=== PATIENT | female | born 1995 | race Caucasian/White ===

== ENCOUNTER 2017-10-25 07:58 | Emergency (ER) | payer OTHER ==
[~2017-10-25] VITALS: Ht 162.6 cm; Wt 81.7 kg
[2017-10-25] MEDS ORDERED: BLISOVI 24 FE1 EACH PO (08:12)
[2017-10-25] MEDS ORDERED: KEFLEX500 M1 PO (09:47)
[2017-10-25] MEDS ORDERED: AMITRIPTYLINE H25 M2 PO (09:47)
[2017-10-25 10:19] VITALS: BP 128/78
== END 2017-10-25 10:19 | disposition home or self-care (01) ==
LOC: M.ERS 07:58
DX: S41.111A Laceration without foreign body of right upper arm, initial encounter (principal); F41.9 Anxiety disorder, unspecified; G35 Multiple sclerosis; W26.8XXA Contact with other sharp object(s), not elsewhere classified, initial encounter; Y93.89 Activity, other specified; Y92.89 Other specified places as the place of occurrence of the external cause; Y99.8 Other external cause status